=== PATIENT | male | born 1960 | race Caucasian/White ===

== ENCOUNTER 2019-01-18 08:10 | Emergency (ER) | payer MEDICAID ==
[~2019-01-18] VITALS: Ht 177.8 cm; Wt 64.9 kg
[2019-01-18 08:13] VITALS: BP 137/108
[2019-01-18] MEDS ORDERED: ALBUTEROL SULFATE 2.5 MG/3 ML NPPB ONE (08:30)
[2019-01-18 08:49] LABS: BASOPHILS # (AUTO) 0.01 x10^3/uL (0-0.1); BASOPHILS % (AUTO) 0 % (0-1); EOSINOPHILS # (AUTO) 0.17 x10^3/uL (0-0.4); EOSINOPHILS % (AUTO) 2 % (1-7); LYMPHOCYTES # (AUTO) 1.42 x10^3/uL (1-3.4); LYMPHOCYTES % (AUTO) 15 % (22-44); MD NO; MEAN CORPUSCULAR HEMOGLOBIN 30.8 pg (27.5-34.5); MEAN CORPUSCULAR HGB CONC 33.6 g/dL (33.2-36.2); MEAN CORPUSCULAR VOLUME 91.7 fL (81-97); MEAN PLATELET VOLUME 7.4 fL (7.4-10.4); MONOCYTES # (AUTO) 0.21 x10^3/uL (0.2-0.8); MONOCYTES % (AUTO) 2 % (2-9); NEUTROPHILS # (AUTO) 7.83 x10^3/uL (1.8-6.8); NEUTROPHILS % (AUTO) 81 % (42-75); PLATELET COUNT 321 x10^3/uL (130-400); RED BLOOD COUNT 4.53 x10^6/uL (4.38-5.82); RED CELL DISTRIBUTION WIDTH 12.8 % (9.4-14.8)
[2019-01-18 09:06] LABS: ALBUMIN 3.9 g/dL (3.4-5.0); ANION GAP 4 mmol/L (5-15); CALCIUM 8.9 mg/dL (8.5-10.1); CHLORIDE 109 mmol/L (98-107)
[2019-01-18 09:07] LABS: CREATININE 0.87 mg/dL (0.7-1.3)
[2019-01-18] MEDS ORDERED: ALBUTEROL SULFATE 2.5 MG/3 ML ONE (09:36)
--- NOTE | 2019-01-18 09:37 | NUR ---
difficulty breathing, cough x 1 day. pt sitting on gurney. no acute distress noted. pt recently moved to the area 4 months ago. moved into a shelter when he stopped using herion and alcohol oct 08, 2018.
--- NOTE | 2019-01-18 09:38 | NUR ---
RT in room with neb treatment
--- NOTE | 2019-01-18 10:12 | NUR ---
PA to room
[2019-01-18] MEDS ORDERED: ALBU0.63 NEB (10:13)
== END 2019-01-18 10:26 | disposition home or self-care (01) ==
LOC: ED 10:20
DX: J43.9 Emphysema, unspecified (principal)
CPT/HCPCS: 36415; 71046; 80048; 82040; 85025; 93005; 94640; 99284; J7512

== ENCOUNTER 2019-01-27 20:49 | Inpatient (IN) | payer MEDICAID ==
[~2019-01-27] VITALS: Ht 177.8 cm; Wt 62.0 kg
[~2019-01-27 20:49] MED LIST: ALBU0.63 NEB
--- NOTE | 2019-01-27 21:16 | NUR ---
DR. SANTOS AT BS TO [place] PT. AND DISCUSS POC.
[2019-01-27] MEDS ORDERED: MORPHINE SULFATE 4 MG/ML, 1ML ONE (21:25)
[2019-01-27] MEDS ORDERED: ONDANSETRON 2MG/ML, 2ML ONE (21:25)
[2019-01-27] MEDS ORDERED: ONDANSETRON 2MG/ML, 2ML IVPush ONE (21:30)
--- NOTE | 2019-01-27 21:40 | NUR ---
FIRST ATTEMPT AT IV ACCESS FAILED. PT. REPORTS HE ALWAYS NEED US IV PLACED R/T DRUG ABUSE IN THE PAST. MARIA ESTHER MALONE IN WITH US MACHINE NOW TO OBTAIN IV. EKG BEING COMPLETED BY JC.
[2019-01-27 22:07] LABS: BASOPHILS # (AUTO) 0.03 x10^3/uL (0-0.1); BASOPHILS % (AUTO) 0 % (0-1); EOSINOPHILS # (AUTO) 0.07 x10^3/uL (0-0.4); EOSINOPHILS % (AUTO) 0 % (1-7); LYMPHOCYTES # (AUTO) 1.47 x10^3/uL (1-3.4); LYMPHOCYTES % (AUTO) 9 % (22-44); MD NO; MEAN CORPUSCULAR HEMOGLOBIN 30.5 pg (27.5-34.5); MEAN CORPUSCULAR HGB CONC 32.4 g/dL (33.2-36.2); MEAN CORPUSCULAR VOLUME 94.2 fL (81-97); MONOCYTES # (AUTO) 0.36 x10^3/uL (0.2-0.8); MONOCYTES % (AUTO) 2 % (2-9); NEUTROPHILS # (AUTO) 15.23 x10^3/uL (1.8-6.8); NEUTROPHILS % (AUTO) 89 % (42-75); PLATELET COUNT 447 x10^3/uL (130-400); RED BLOOD COUNT 4.74 x10^6/uL (4.38-5.82); RED CELL DISTRIBUTION WIDTH 13.9 % (9.4-14.8)
[2019-01-27 22:14] LABS: ALANINE AMINOTRANSFERASE 50 U/L (12-78); ALBUMIN 3.9 g/dL (3.4-5.0); ANION GAP 8 mmol/L (5-15); CALCIUM 9.2 mg/dL (8.5-10.1); CHLORIDE 104 mmol/L (98-107); CREATININE 0.86 mg/dL (0.7-1.3)
[2019-01-27] MEDS: MORPHINE SULFATE 4 MG/ML, 1ML IVPush PRN (22:18)
[2019-01-27 22:19] LABS: ALKALINE PHOSPHATASE 85 U/L (45-117); BILIRUBIN,TOTAL 0.3 mg/dL (0.2-1.0); TOTAL PROTEIN 7.4 g/dL (6.4-8.2); TROPONIN I < 0.015 ng/mL (0.000-0.045)
[2019-01-27] MEDS ORDERED: MIRT15TA94 PO (22:23)
[2019-01-27] MEDS ORDERED: OMNIPAQUE 350 MG/ML, 100ML BOTTLE ONE (22:57)
--- NOTE | 2019-01-27 23:44 | NUR ---
PT. TO US VIA [facility].
[2019-01-28 00:19] LABS: MICROSCOPIC NOT IND
[2019-01-28 00:22] LABS: CULTURE INDICATED? NO
[2019-01-28] MEDS ORDERED: MORPHINE SULFATE 4 MG/ML, 1ML ONE (00:24)
[2019-01-28] MEDS: MORPHINE SULFATE 4 MG/ML, 1ML IVPush PRN (00:26)
[2019-01-28] MEDS ORDERED: CEFOTETAN PMX 1GM/50ML 50 ML IV ONE (01:00)
[2019-01-28] MEDS ORDERED: BUPIVACAINE/PF-EPI 0.5% 1:200K ONE (01:11)
[2019-01-28] MEDS ORDERED: MORPHINE SULFATE 4 MG/ML, 1ML IVPush PRN (01:30)
[2019-01-28] MEDS ORDERED: ONDANSETRON 2MG/ML, 2ML IVPush PRN ×2 (01:30→04:30)
[2019-01-28] MEDS ORDERED: CEFOTETAN PMX 1GM/50ML 50 ML ONE (01:44)
--- NOTE | 2019-01-28 01:50 | NUR ---
BREAK RN: PER ERP, NO BLOOD CULTURES WANTED AT THIS TIME. ORDERED ABX HUNG. PT VSS, SEE CHARTED. PT RESTING CALMLY IN BED, NO STATED NEEDS. PT HAS LEMON STICKS AT BEDSIDE. CALL LIGHT WITHIN REACH.
[2019-01-28] MEDS ORDERED: SODIUM CHLORIDE 0.9% 1,000 ML IV SCH (04:19)
[2019-01-28] MEDS ORDERED: POLYETHYLENE GLYCOL 17 GM PACKET PO PRN (04:30)
[2019-01-28] MEDS ORDERED: HEPARIN 5,000 UNITS/ML, 1ML SQ SCH (04:30)
[2019-01-28] MEDS ORDERED: morphine SULFATE 10 MG/ML, 1ML IVPush PRN (04:30)
[2019-01-28] MEDS ORDERED: BISACODYL 10 MG SUPP PR PRN (04:30)
[2019-01-28] MEDS ORDERED: BUPIVACAINE/PF-EPI 0.5% 1:200K IM ONE (04:31)
[2019-01-28] MEDS: NICOTINE 14MG/24 HR PATCH.TD24 TD SCH ×2 (04:43→09:05)
[2019-01-28] MEDS ORDERED: FENTANYL PF 250 MCG/5ML ONE (05:17)
[2019-01-28] MEDS ORDERED: ONDANSETRON 2MG/ML, 2ML ONE (05:18)
[2019-01-28] MEDS ORDERED: MIDAZOLAM 1 MG/ML, 2ML ONE (05:18)
[2019-01-28] MEDS ORDERED: ROCURONIUM 10MG/ML,5ML ONE (05:18)
[2019-01-28] MEDS ORDERED: CEFAZOLIN 1,000 MG ONE (05:18)
[2019-01-28] MEDS ORDERED: GLYCOPYRROLATE 0.2MG/1ML, 5ML ONE (05:18)
[2019-01-28] MEDS ORDERED: NEOSTIGMINE 1 MG/ML, 10ML ONE (05:18)
[2019-01-28] MEDS ORDERED: DEXAMETHASONE 4 MG/ML, 1ML ONE (05:18)
[2019-01-28] MEDS ORDERED: PROPOFOL 10 MG/ML, 20ML ONE (05:18)
[2019-01-28] MEDS ORDERED: SUCCINYLCHOLINE 20 MG/ML, 10ML ONE (05:18)
[2019-01-28] MEDS ORDERED: EPHEDRINE 50 MG/ML, 1ML ONE (05:22)
[2019-01-28 06:43] LABS: BASOPHILS # (AUTO) 0.02 x10^3/uL (0-0.1); BASOPHILS % (AUTO) 0 % (0-1); EOSINOPHILS # (AUTO) 0.16 x10^3/uL (0-0.4); EOSINOPHILS % (AUTO) 2 % (1-7); LYMPHOCYTES # (AUTO) 1.97 x10^3/uL (1-3.4); LYMPHOCYTES % (AUTO) 18 % (22-44); MD NO; MEAN CORPUSCULAR HEMOGLOBIN 31.1 pg (27.5-34.5); MEAN CORPUSCULAR HGB CONC 33.2 g/dL (33.2-36.2); MEAN CORPUSCULAR VOLUME 93.7 fL (81-97); MEAN PLATELET VOLUME 6.1 fL (7.4-10.4); MONOCYTES # (AUTO) 0.85 x10^3/uL (0.2-0.8); MONOCYTES % (AUTO) 8 % (2-9); NEUTROPHILS # (AUTO) 7.87 x10^3/uL (1.8-6.8); NEUTROPHILS % (AUTO) 72 % (42-75); PLATELET COUNT 372 x10^3/uL (130-400); RED BLOOD COUNT 3.85 x10^6/uL (4.38-5.82); RED CELL DISTRIBUTION WIDTH 13.5 % (9.4-14.8)
[2019-01-28] MEDS: HYDROmorphone 2 MG/ML, 1ML IVPush PRN ×4 (07:16→08:05)
[2019-01-28 07:17] LABS: HEMOGLOBIN A1C 5.8 % (4.2-6.3)
[2019-01-28] MEDS ORDERED: HYDROmorphone 2 MG/ML, 1ML ONE (07:18)
[2019-01-28] MEDS ORDERED: FENTANYL PF 100 MCG/2ML ONE (07:18)
[2019-01-28] MEDS ORDERED: OXYcodone 5 MG/5 ML ORAL.SOL UDC ONE (07:18)
[2019-01-28] MEDS ORDERED: LABETALOL 5MG/ML, 20ML IV PRN (07:30)
[2019-01-28] MEDS ORDERED: PROMETHAZINE 25 MG/ML, 1ML IV PRN (07:30)
[2019-01-28] MEDS ORDERED: hydrALAzine 20 MG/ML, 1ML IV PRN (07:30)
[2019-01-28] MEDS ORDERED: FENTANYL PF 100 MCG/2ML IV PRN (07:30)
[2019-01-28] MEDS ORDERED: ONDANSETRON ODT 8 MG PO PRN (07:30)
[2019-01-28] MEDS ORDERED: MEPERIDINE/PF 25MG/0.5ML IVPush PRN (07:30)
[2019-01-28] MEDS ORDERED: ACETAMINOPHEN 325 MG TABLET PO PRN (07:30)
[2019-01-28] MEDS ORDERED: ONDANSETRON 2MG/ML, 2ML IV PRN ×2 (07:30→09:30)
[2019-01-28] MEDS ORDERED: OXYcodone 5 MG/5 ML ORAL.SOL UDC PO PRN (07:30)
[2019-01-28] MEDS ORDERED: LORazepam 2 MG/ML, 1ML IVPush PRN (07:30)
[2019-01-28 07:33] LABS: INTERNATIONAL NORMALIZED RATIO 0.95 (0.93-1.1)
[2019-01-28] MEDS: FAMOTIDINE 20 MG TABLET PO SCH ×2 (09:05→20:18)
[2019-01-28] MEDS ORDERED: LORazepam 2 MG/ML, 1ML IV PRN (09:30)
[2019-01-28] MEDS ORDERED: HYDROmorphone 2 MG/ML, 1ML IVPush PRN (09:30)
[2019-01-28] MEDS ORDERED: LORazepam 1MG TABLET PO PRN (09:30)
[2019-01-28 09:59] VITALS: BP 102/63
[2019-01-28 10:12] LABS: TROPONIN I < 0.015 ng/mL (0.000-0.045)
[2019-01-28 10:18] LABS: THYROID STIMULATING HORMONE 0.743 mIU/L (0.358-3.740)
[2019-01-28] MEDS: POTASSIUM CHLORIDE 20 MEQ in D5%-0.45% NACL 1,000 ML IV SCH ×2 (13:15→23:51)
[2019-01-28] MEDS: CEFOTETAN PMX 1GM/50ML 50 ML IVPB SCH (13:15)
[2019-01-28] MEDS: morphine SULFATE 10 MG/ML, 1ML IV PRN ×2 (13:51→20:18)
[2019-01-28 14:33] VITALS: BP 132/76
[2019-01-28] MEDS ORDERED: ALBUTEROL SULFATE 2.5 MG/3 ML NPPB PRN (17:00)
[2019-01-28 19:41] VITALS: BP 119/68
[2019-01-28] MEDS: OXYcodone/APAP 5/325MG TABLET PO PRN (23:01)
[2019-01-28 23:53] VITALS: BP 116/73
[2019-01-29] MEDS: CEFOTETAN PMX 1GM/50ML 50 ML IVPB SCH (01:38)
[2019-01-29 03:55] VITALS: BP 125/75
[2019-01-29] MEDS: OXYcodone/APAP 5/325MG TABLET PO PRN ×5 (03:55→23:25)
[2019-01-29 06:12] LABS: MEAN CORPUSCULAR HGB CONC 33.1 g/dL (33.2-36.2); MEAN CORPUSCULAR VOLUME 93.6 fL (81-97); MEAN PLATELET VOLUME 6.9 fL (7.4-10.4); PLATELET COUNT 322 x10^3/uL (130-400); RED BLOOD COUNT 3.96 x10^6/uL (4.38-5.82); RED CELL DISTRIBUTION WIDTH 13.8 % (9.4-14.8)
[2019-01-29 06:39] LABS: ANION GAP 6 mmol/L (5-15); CALCIUM 8.1 mg/dL (8.5-10.1); CHLORIDE 101 mmol/L (98-107)
[2019-01-29 06:43] LABS: CREATININE 0.87 mg/dL (0.7-1.3)
[2019-01-29 06:44] LABS: ALANINE AMINOTRANSFERASE 84 U/L (12-78); ALKALINE PHOSPHATASE 74 U/L (45-117); BILIRUBIN,TOTAL 0.5 mg/dL (0.2-1.0); CHOL/HDL RATIO 2.7; CHOLESTEROL, TOTAL 107 mg/dL (140-239); HDL CHOL % 37 % (26-37); HDL CHOLESTEROL (DIRECT) 40 mg/dL (40-60); LDL CHOLESTEROL,CALCULATED 50 mg/dL (54-169); LDL/HDL RATIO 1.3 (0.5-3.0); MD YES; TOTAL PROTEIN 6.2 g/dL (6.4-8.2); TRIGLYCERIDES 84 mg/dL (50-200); VLDL CHOLESTEROL 17 mg/dL (0-25)
[2019-01-29 06:46] LABS: <PLATELET ESTIMATE> ADEQUATE; <PLT MORPHOLOGY> NORMAL PLT MORPH; <RBC MORPHOLOGY> NORMAL; BAND#(MANUAL) 0.85 x10^3/uL; BANDS%(MANUAL) 5 % (0-7); LYMPH#(MANUAL) 0.68 x10^3/uL (1-3.4); LYMPHS% (MANUAL) 4 % (22-44); MONOS#(MANUAL) 1.36 x10^3/uL (0.3-2.7); MONOS% (MANUAL) 8 % (2-9); SEG#(MANUAL) 14.11 x10^3/uL (1.8-6.8); SEGS% (MANUAL) 83 % (42-75)
[2019-01-29] MEDS: FAMOTIDINE 20 MG TABLET PO SCH ×2 (08:09→23:25)
[2019-01-29] MEDS: NICOTINE 14MG/24 HR PATCH.TD24 TD SCH (08:10)
[2019-01-29] MEDS: POTASSIUM CHLORIDE 20 MEQ in D5%-0.45% NACL 1,000 ML IV SCH ×2 (09:12→19:18)
[2019-01-29 11:26] VITALS: BP 117/70
[2019-01-29 14:14] VITALS: BP 114/75
[2019-01-29] MEDS ORDERED: DOCUSATE 100 MG CAPSULE PO PRN (14:30)
[2019-01-29] MEDS ORDERED: DOCUSATE 100 MG CAPSULE PO SCH (14:30)
[2019-01-29 20:09] VITALS: BP 101/65
[2019-01-29] MEDS: DOCUSATE 100 MG CAPSULE PO SCH (23:25)
[2019-01-30 02:52] VITALS: BP 120/77
[2019-01-30] MEDS: OXYcodone/APAP 5/325MG TABLET PO PRN ×5 (03:45→23:41)
[2019-01-30] MEDS: POTASSIUM CHLORIDE 20 MEQ in D5%-0.45% NACL 1,000 ML IV SCH ×3 (03:45→20:41)
[2019-01-30 04:57] LABS: MEAN CORPUSCULAR HEMOGLOBIN 30.6 pg (27.5-34.5); MEAN CORPUSCULAR HGB CONC 32.6 g/dL (33.2-36.2); MEAN PLATELET VOLUME 7.4 fL (7.4-10.4); PLATELET COUNT 313 x10^3/uL (130-400); RED BLOOD COUNT 3.84 x10^6/uL (4.38-5.82); RED CELL DISTRIBUTION WIDTH 13.8 % (9.4-14.8)
[2019-01-30 05:09] LABS: ALBUMIN 2.8 g/dL (3.4-5.0); ANION GAP 7 mmol/L (5-15); CALCIUM 8.6 mg/dL (8.5-10.1); CHLORIDE 103 mmol/L (98-107)
[2019-01-30 05:13] LABS: ALANINE AMINOTRANSFERASE 71 U/L (12-78); ALKALINE PHOSPHATASE 75 U/L (45-117); BILIRUBIN,TOTAL 0.6 mg/dL (0.2-1.0); CREATININE 0.81 mg/dL (0.7-1.3); TOTAL PROTEIN 6.3 g/dL (6.4-8.2)
[2019-01-30 05:41] LABS: BASOPHILS # (AUTO) 0.07 x10^3/uL (0-0.1); BASOPHILS % (AUTO) 0 % (0-1); EOSINOPHILS # (AUTO) 0.19 x10^3/uL (0-0.4); EOSINOPHILS % (AUTO) 1 % (1-7); LYMPHOCYTES # (AUTO) 1.01 x10^3/uL (1-3.4); LYMPHOCYTES % (AUTO) 5 % (22-44); MD SCAN; MONOCYTES # (AUTO) 1.21 x10^3/uL (0.2-0.8); MONOCYTES % (AUTO) 6 % (2-9); NEUTROPHILS # (AUTO) 16.86 x10^3/uL (1.8-6.8); NEUTROPHILS % (AUTO) 87 % (42-75)
[2019-01-30 08:01] VITALS: BP 120/78
[2019-01-30] MEDS: NICOTINE 14MG/24 HR PATCH.TD24 TD SCH (08:16)
[2019-01-30] MEDS: FAMOTIDINE 20 MG TABLET PO SCH ×2 (08:16→20:41)
[2019-01-30] MEDS ORDERED: metroNIDAZOLE 500 MG TABLET PO SCH (10:30)
[2019-01-30] MEDS ORDERED: CIPROFLOXACIN 500 MG TABLET PO SCH (10:30)
[2019-01-30] MEDS: PIPERACILLIN/TAZO/PMX 3.375GM 50 ML IV SCH ×2 (14:06→20:41)
[2019-01-30 14:34] VITALS: BP 106/69
[2019-01-30 19:33] VITALS: BP 99/59
[2019-01-30] MEDS: DOCUSATE 100 MG CAPSULE PO SCH (20:41)
[2019-01-31 02:01] VITALS: BP 113/71
[2019-01-31] MEDS: OXYcodone/APAP 5/325MG TABLET PO PRN ×5 (03:57→23:10)
[2019-01-31] MEDS: PIPERACILLIN/TAZO/PMX 3.375GM 50 ML IV SCH ×4 (03:58→21:31)
[2019-01-31 05:14] LABS: MEAN CORPUSCULAR VOLUME 93.9 fL (81-97); MEAN PLATELET VOLUME 7.5 fL (7.4-10.4); PLATELET COUNT 297 x10^3/uL (130-400); RED BLOOD COUNT 3.46 x10^6/uL (4.38-5.82); RED CELL DISTRIBUTION WIDTH 13.9 % (9.4-14.8)
[2019-01-31 05:50] LABS: BASOPHILS # (AUTO) 0.02 x10^3/uL (0-0.1); BASOPHILS % (AUTO) 0 % (0-1); EOSINOPHILS # (AUTO) 0.11 x10^3/uL (0-0.4); EOSINOPHILS % (AUTO) 1 % (1-7); LYMPHOCYTES # (AUTO) 0.56 x10^3/uL (1-3.4); LYMPHOCYTES % (AUTO) 3 % (22-44); MD SCAN; MONOCYTES # (AUTO) 0.74 x10^3/uL (0.2-0.8); MONOCYTES % (AUTO) 4 % (2-9); NEUTROPHILS # (AUTO) 16.85 x10^3/uL (1.8-6.8); NEUTROPHILS % (AUTO) 92 % (42-75)
[2019-01-31 07:15] VITALS: BP 122/78
[2019-01-31] MEDS: FAMOTIDINE 20 MG TABLET PO SCH ×2 (08:59→21:04)
[2019-01-31] MEDS: NICOTINE 14MG/24 HR PATCH.TD24 TD SCH (08:59)
[2019-01-31] MEDS: POTASSIUM CHLORIDE 20 MEQ in D5%-0.45% NACL 1,000 ML IV SCH ×3 (09:00→21:31)
[2019-01-31 14:02] VITALS: BP 104/67
[2019-01-31 19:44] VITALS: BP 105/68
[2019-01-31] MEDS: DOCUSATE 100 MG CAPSULE PO SCH (21:05)
[2019-02-01 02:11] VITALS: BP 102/68
[2019-02-01] MEDS: PIPERACILLIN/TAZO/PMX 3.375GM 50 ML IV SCH ×3 (03:57→15:47)
[2019-02-01] MEDS: OXYcodone/APAP 5/325MG TABLET PO PRN ×3 (04:01→13:15)
[2019-02-01 07:41] LABS: MEAN CORPUSCULAR HEMOGLOBIN 29.3 pg (27.5-34.5); MEAN CORPUSCULAR HGB CONC 31.2 g/dL (33.2-36.2); MEAN CORPUSCULAR VOLUME 93.8 fL (81-97); MEAN PLATELET VOLUME 7.3 fL (7.4-10.4); PLATELET COUNT 319 x10^3/uL (130-400)
[2019-02-01 07:52] LABS: ALANINE AMINOTRANSFERASE 46 U/L (12-78); ALBUMIN 2.5 g/dL (3.4-5.0); ANION GAP 3 mmol/L (5-15); CHLORIDE 105 mmol/L (98-107)
[2019-02-01 07:54] LABS: ALKALINE PHOSPHATASE 93 U/L (45-117); BILIRUBIN,TOTAL 0.6 mg/dL (0.2-1.0); CREATININE 0.75 mg/dL (0.7-1.3); TOTAL PROTEIN 6.1 g/dL (6.4-8.2)
[2019-02-01 07:56] LABS: BASOPHILS # (AUTO) 0.01 x10^3/uL (0-0.1); BASOPHILS % (AUTO) 0 % (0-1); EOSINOPHILS # (AUTO) 0.27 x10^3/uL (0-0.4); EOSINOPHILS % (AUTO) 2 % (1-7); LYMPHOCYTES # (AUTO) 0.91 x10^3/uL (1-3.4); LYMPHOCYTES % (AUTO) 8 % (22-44); MD SCAN; MONOCYTES # (AUTO) 1.03 x10^3/uL (0.2-0.8); MONOCYTES % (AUTO) 9 % (2-9); NEUTROPHILS # (AUTO) 9.75 x10^3/uL (1.8-6.8); NEUTROPHILS % (AUTO) 82 % (42-75)
[2019-02-01] MEDS: NICOTINE 14MG/24 HR PATCH.TD24 TD SCH (08:51)
[2019-02-01] MEDS: FAMOTIDINE 20 MG TABLET PO SCH (08:51)
[2019-02-01 09:30] VITALS: BP 110/63
[2019-02-01] MEDS: POTASSIUM CHLORIDE 20 MEQ in D5%-0.45% NACL 1,000 ML IV SCH (14:04)
[2019-02-01 14:30] VITALS: BP 108/62
[2019-02-01] MEDS ORDERED: NICO-486 TD (15:17)
[2019-02-01] MEDS ORDERED: METR500T PO (15:17)
[2019-02-01] MEDS ORDERED: CIPR250T27 PO (15:17)
== END 2019-02-01 16:33 | disposition home or self-care (01) | DRG 415 ==
LOC: ED 22:10 → EDIP 01-28 01:07 → 4NOR 01-28 02:30
PROVIDERS: ADMIT Internal Medicine; ATTEND Internal Medicine
PROC: 0FJ44ZZ Inspection of Gallbladder, Percutaneous Endoscopic Approach (ICD-10-PCS; 2019-01-28)
PROC: 0FT40ZZ Resection of Gallbladder, Open Approach (ICD-10-PCS; principal; 2019-01-28 05:00)
DX: K80.12 Calculus of gallbladder with acute and chronic cholecystitis without obstruction (principal); K82.1 Hydrops of gallbladder; F17.210 Nicotine dependence, cigarettes, uncomplicated; F32.9 Major depressive disorder, single episode, unspecified; Z66 Do not resuscitate; J44.9 Chronic obstructive pulmonary disease, unspecified; K57.30 Diverticulosis of large intestine without perforation or abscess without bleeding; K82.8 Other specified diseases of gallbladder; R50.82 Postprocedural fever; Z53.31 Laparoscopic surgical procedure converted to open procedure; Z56.0 Unemployment, unspecified
CPT/HCPCS: 36415; 74018; 74177; 76700; 80053; 80061; 81003; 83036; 83690; 83735; 84443; 84484; 85025; 85610; 85730; 87040; 88304; 93005; 96365; 96375; 96376; G0378; J0690; J1100; J1170; J2250; J2405; J2543; J2704; J2710; J3010; J3480; Q9967; J0330; J2270; J3490

== ENCOUNTER 2019-02-04 04:35 | Inpatient (IN) | payer MEDICAID ==
[~2019-02-04] VITALS: Ht 177.8 cm; Wt 71.1 kg
[~2019-02-04 04:35] MED LIST changes: +CIPR250T27 PO; +METR500T PO; +MIRT15TA94 PO; +NICO-486 TD
--- NOTE | 2019-02-04 04:53 | NUR ---
58 Y/O MALE BIB [facility] C/O LEFT SIDED ABD PAIN THAT RADIATES TO THE LEFT SHOULDER. PAIN HAS BEEN PRESENT FOR THE PAST FEW DAYS AND HAS PROGRESSIVELY GOTTEN WORSE. EMS REPORTS THE PT WAS EXTREMELY UNCOMFORTABLE UPON THEIR ARRIVAL. HE DID HAVE HIS GALLBLADDER REMOVED A WEEK AGO. SURGICAL SITE TO THE RIGHT SIDE OF THE ABD. YAEL IN PLACE, WELL APPROXIMATED, NO SIGNS OF INFECTION/INFLAMMATION. PT DENIES ANY N/V/D. DENIES ANY FEVER/CHILLS. HX OF COPD, PRIOR IV DRUG USER/ALCOHOLIC. EMS FOUND PT TO BE HYPOXIC AT 90% ON RA. PT DENIES HOME O2 USE. EMS ESTABLISHED IV AND ADMINISTERED 100MCG OF FENTANYL AND 1MG OF VERSED. ALSO PLACED ON O2 VIA NC @ 2LPM. PT ATTACHED TO ALL MONITORING EQUIPMENT, EKG OBTAINED. SHOWING NSR ON THE MONITOR. ALL VITALS STABLE. PT APPEARS UNCOMFORTABLE AND IN PAIN. AWAITING PROVIDER TO SEE PT. PT PLACED IN POSITION OF COMFORT. CALL LIGHT WITHIN REACH. WILL CONTINUE TO MONITOR.
[2019-02-04] MEDS ORDERED: SODIUM CHLORIDE FLUSH 10ML SYR IVF ONE (05:00)
[2019-02-04] MEDS ORDERED: MORPHINE SULFATE 4 MG/ML, 1ML IVPush PRN (05:00)
[2019-02-04] MEDS ORDERED: ONDANSETRON 2MG/ML, 2ML IVPush ONE (05:00)
[2019-02-04] MEDS ORDERED: MORPHINE SULFATE 4 MG/ML, 1ML ONE (05:02)
[2019-02-04] MEDS ORDERED: ONDANSETRON 2MG/ML, 2ML ONE (05:02)
--- NOTE | 2019-02-04 05:08 | NUR ---
PT MEDICATED PER EMAR, 5 RIGHTS ADDRESSED. PT CURRENTLY RATES HIS PAIN A 7/10.
--- NOTE | 2019-02-04 05:18 | NUR ---
XRAY AT BEDSIDE.
[2019-02-04 05:32] LABS: BASOPHILS # (AUTO) 0.01 x10^3/uL (0-0.1); BASOPHILS % (AUTO) 0 % (0-1); EOSINOPHILS % (AUTO) 1 % (1-7); LYMPHOCYTES # (AUTO) 0.66 x10^3/uL (1-3.4); LYMPHOCYTES % (AUTO) 5 % (22-44); MD NO; MEAN CORPUSCULAR HEMOGLOBIN 30.3 pg (27.5-34.5); MEAN CORPUSCULAR HGB CONC 32.9 g/dL (33.2-36.2); MEAN CORPUSCULAR VOLUME 92.3 fL (81-97); MEAN PLATELET VOLUME 6.4 fL (7.4-10.4); MONOCYTES # (AUTO) 0.75 x10^3/uL (0.2-0.8); MONOCYTES % (AUTO) 5 % (2-9); NEUTROPHILS # (AUTO) 12.74 x10^3/uL (1.8-6.8); NEUTROPHILS % (AUTO) 89 % (42-75); PLATELET COUNT 669 x10^3/uL (130-400); RED BLOOD COUNT 3.59 x10^6/uL (4.38-5.82); RED CELL DISTRIBUTION WIDTH 14.1 % (9.4-14.8)
[2019-02-04 05:37] LABS: ALANINE AMINOTRANSFERASE 60 U/L (12-78); ALBUMIN 2.9 g/dL (3.4-5.0); ANION GAP 6 mmol/L (5-15); CALCIUM 8.6 mg/dL (8.5-10.1); CHLORIDE 105 mmol/L (98-107); CREATININE 0.83 mg/dL (0.7-1.3)
[2019-02-04] MEDS ORDERED: HYDROmorphone 2 MG/ML, 1ML ONE (05:38)
[2019-02-04 05:39] LABS: ALKALINE PHOSPHATASE 232 U/L (45-117); BILIRUBIN,TOTAL 0.3 mg/dL (0.2-1.0); TOTAL PROTEIN 6.7 g/dL (6.4-8.2)
[2019-02-04] MEDS: HYDROmorphone 2 MG/ML, 1ML IVPush PRN ×2 (05:42→06:09)
--- NOTE | 2019-02-04 05:43 | NUR ---
PT MEDICATED PER EMAR FOR PAIN. 5 RIGHTS ADDRESSED. PT HAS URINAL AND UNDERSTANDS THE NEED FOR A URINE SAMPLE, STATES HE CANNOT GO AT THIS TIME AND UNABLE TO HAVE ANY WATER UNTIL TESTS COME BACK. PT STATES HE WILL TRY TO PROVIDE A URINE SAMPLE.
--- NOTE | 2019-02-04 05:49 | NUR ---
PT TO CT
[2019-02-04] MEDS ORDERED: OMNIPAQUE 350 MG/ML, 100ML BOTTLE ONE (06:08)
--- NOTE | 2019-02-04 06:09 | NUR ---
PT MEDICATED PER EMAR FOR SECOND DOSE OF DILAUDID FOR PAIN. PT STILL APPEARS TO BE UNCOMFORTABLE. PT PROVIDED WITH PILLOW BEHIND BACK FOR COMFORT. STILL KNOWS HE NEEDS TO PROVIDE A URINE SAMPLE WHEN ABLE. AWAITING CT RESULTS AT THIS TIME. WILL CONTINUE TO MONITOR.
--- NOTE | 2019-02-04 06:32 | NUR ---
PT STATES PAIN IS NOW A 5/10 BUT STILL SIGNIFICANT. HE APPEARS SOMEWHAT MORE COMFORTABLE. AWAITING CT RESULTS AT THIS TIME. WILL DISCUSS FURTHER PAIN MANAGEMENT OPTIONS WITH ERP.
--- NOTE | 2019-02-04 07:00 | NUR ---
REPORT TO MARIA ESTHER DELGADO AND BRII RN
--- NOTE | 2019-02-04 07:01 | NUR ---
Report from night RN . Rounded on pt, stating his pain is still 6. ERP at BS discussed CT results. Will cont to monitor, call light within reach
[2019-02-04] MEDS ORDERED: DOCU100C33 PO (07:17)
[2019-02-04] MEDS ORDERED: CEFOTETAN PMX 1GM/50ML 50 ML ONE (07:28)
[2019-02-04] MEDS ORDERED: CEFOTETAN PMX 1GM/50ML 50 ML IV ONE (07:30)
--- NOTE | 2019-02-04 07:56 | NUR ---
PER CODING ASSISTANT 2ND BLOOD CULTURE NOT DRAWN. DISCUSSED WITH DR. JOHNSON, 2ND BC NOT DRAWN AND ABX HAVE BEEN STARTED. 2ND BC TO BE CANCELLED.
--- NOTE | 2019-02-04 08:57 | NUR ---
REPORT TO MARIA ESTHER RIZO ON FLOOR. READY FOR PT TRANSFER
[2019-02-04] MEDS ORDERED: SODIUM CHLORIDE FLUSH 10ML SYR IVF PRN (09:00)
[2019-02-04 09:17] VITALS: BP 145/80
[2019-02-04] MEDS ORDERED: hydrALAzine 20 MG/ML, 1ML IVPush PRN (10:30)
[2019-02-04] MEDS ORDERED: ONDANSETRON 2MG/ML, 2ML IVPush PRN (10:30)
[2019-02-04 10:39] LABS: INTERNATIONAL NORMALIZED RATIO 0.98 (0.93-1.1); PROTHROMBIN TIME 10.3 Seconds (9.6-11.5)
[2019-02-04] MEDS ORDERED: LIDOCAINE-MPF 1%, 5ML ONE (10:59)
[2019-02-04] MEDS ORDERED: FLUMAZENIL 0.1 MG/1 ML, 5ML ONE (12:14)
[2019-02-04] MEDS ORDERED: MIDAZOLAM 1 MG/ML, 5ML ONE (12:14)
[2019-02-04] MEDS ORDERED: NALOXONE 1 MG/ML, 2ML ONE (12:14)
[2019-02-04] MEDS ORDERED: FENTANYL PF 100 MCG/2ML ONE (12:14)
[2019-02-04] MEDS: D5%-0.45NACL+KCL 20MEQ 1,000 ML IV SCH ×2 (13:52→22:26)
[2019-02-04] MEDS: PIPERACILLIN/TAZO/PMX 3.375GM 50 ML IV SCH ×2 (13:53→21:51)
[2019-02-04] MEDS: PANTOPRAZOLE 40 MG IV IVPush SCH (13:54)
[2019-02-04] MEDS ORDERED: NICOTINE 7 MG/24 HR PATCH.TD24 ONE (16:33)
[2019-02-04] MEDS: NICOTINE 7 MG/24 HR PATCH.TD24 TD SCH (16:36)
[2019-02-04] MEDS: morphine SULFATE 10 MG/ML, 1ML IVPush PRN ×2 (16:40→20:11)
[2019-02-04 19:02] VITALS: BP 111/71
[2019-02-05 00:25] VITALS: BP 115/75
[2019-02-05] MEDS: morphine SULFATE 10 MG/ML, 1ML IVPush PRN ×4 (01:13→20:56)
[2019-02-05 01:48] LABS: MICROSCOPIC NOT IND
[2019-02-05 01:50] LABS: CULTURE INDICATED? NO
[2019-02-05] MEDS: PIPERACILLIN/TAZO/PMX 3.375GM 50 ML IV SCH ×4 (04:07→23:20)
[2019-02-05 05:03] LABS: BASOPHILS # (AUTO) 0.02 x10^3/uL (0-0.1); BASOPHILS % (AUTO) 0 % (0-1); EOSINOPHILS # (AUTO) 0.22 x10^3/uL (0-0.4); EOSINOPHILS % (AUTO) 2 % (1-7); LYMPHOCYTES # (AUTO) 1.19 x10^3/uL (1-3.4); LYMPHOCYTES % (AUTO) 9 % (22-44); MD NO; MEAN CORPUSCULAR HEMOGLOBIN 30.5 pg (27.5-34.5); MEAN CORPUSCULAR HGB CONC 32.7 g/dL (33.2-36.2); MEAN CORPUSCULAR VOLUME 93.3 fL (81-97); MEAN PLATELET VOLUME 6.5 fL (7.4-10.4); MONOCYTES # (AUTO) 0.98 x10^3/uL (0.2-0.8); MONOCYTES % (AUTO) 8 % (2-9); NEUTROPHILS # (AUTO) 10.25 x10^3/uL (1.8-6.8); NEUTROPHILS % (AUTO) 81 % (42-75); PLATELET COUNT 658 x10^3/uL (130-400); RED BLOOD COUNT 3.27 x10^6/uL (4.38-5.82); RED CELL DISTRIBUTION WIDTH 14.3 % (9.4-14.8)
[2019-02-05 05:13] LABS: CHLORIDE 104 mmol/L (98-107)
[2019-02-05 05:26] LABS: ALANINE AMINOTRANSFERASE 41 U/L (12-78); ALBUMIN 2.4 g/dL (3.4-5.0); ALKALINE PHOSPHATASE 157 U/L (45-117); ANION GAP 3 mmol/L (5-15); BILIRUBIN,TOTAL 0.4 mg/dL (0.2-1.0); CREATININE 0.64 mg/dL (0.7-1.3); TOTAL PROTEIN 5.9 g/dL (6.4-8.2)
[2019-02-05] MEDS: D5%-0.45NACL+KCL 20MEQ 1,000 ML IV SCH ×2 (05:33→21:01)
[2019-02-05] MEDS ORDERED: MIDAZOLAM 1 MG/ML, 2ML ONE (06:23)
[2019-02-05] MEDS ORDERED: ROCURONIUM 10MG/ML,5ML ONE ×2 (07:00→14:46)
[2019-02-05] MEDS ORDERED: DEXAMETHASONE 4 MG/ML, 1ML ONE (07:00)
[2019-02-05] MEDS ORDERED: PROPOFOL 10 MG/ML, 20ML ONE ×3 (07:00→14:46)
[2019-02-05] MEDS ORDERED: EPHEDRINE 50 MG/ML, 1ML ONE ×2 (07:01→15:49)
[2019-02-05] MEDS ORDERED: CEFAZOLIN 1,000 MG ONE (07:01)
[2019-02-05] MEDS ORDERED: PHENYLEPHRINE 10 MG/ML ONE (07:01)
[2019-02-05 07:09] VITALS: BP 104/68
[2019-02-05] MEDS ORDERED: FENTANYL PF 250 MCG/5ML ONE (07:39)
[2019-02-05] MEDS: PANTOPRAZOLE 40 MG IV IVPush SCH (08:20)
[2019-02-05] MEDS ORDERED: MORPHINE SULFATE 4 MG/ML, 1ML IVPush PRN (15:00)
[2019-02-05] MEDS ORDERED: HYDROcodone/APAP 7.5-325MG/15ML UDC PO PRN (15:00)
[2019-02-05] MEDS ORDERED: MEPERIDINE/PF 25MG/0.5ML IVPush PRN (15:00)
[2019-02-05] MEDS ORDERED: OXYcodone 5 MG/5 ML ORAL.SOL UDC PO PRN (15:00)
[2019-02-05] MEDS ORDERED: HYDROmorphone 2 MG/ML, 1ML IVPush PRN (15:00)
[2019-02-05] MEDS ORDERED: FENTANYL PF 100 MCG/2ML ONE (15:50)
[2019-02-05] MEDS ORDERED: INDOMETHACIN 50 MG SUPP.RECT ONE (15:51)
[2019-02-05] MEDS ORDERED: OXYcodone 5 MG/5 ML ORAL.SOL UDC ONE (15:51)
[2019-02-05] MEDS: FENTANYL PF 100 MCG/2ML IV PRN ×2 (15:55→16:05)
[2019-02-05] MEDS ORDERED: INDOMETHACIN 50 MG SUPP.RECT PR ONE (16:00)
[2019-02-05] MEDS ORDERED: HYDROmorphone 2 MG/ML, 1ML ONE (16:06)
[2019-02-05] MEDS: NICOTINE 7 MG/24 HR PATCH.TD24 TD SCH (17:42)
[2019-02-05 18:46] VITALS: BP 112/76
[2019-02-05] MEDS ORDERED: SUCCINYLCHOLINE 20 MG/ML, 10ML ONE (19:39)
[2019-02-06 00:35] VITALS: BP 113/68
[2019-02-06] MEDS: morphine SULFATE 10 MG/ML, 1ML IVPush PRN ×6 (03:15→21:20)
[2019-02-06 04:00] VITALS: BP 110/63
[2019-02-06] MEDS: PIPERACILLIN/TAZO/PMX 3.375GM 50 ML IV SCH ×4 (04:06→22:12)
[2019-02-06] MEDS: D5%-0.45NACL+KCL 20MEQ 1,000 ML IV SCH (04:06)
[2019-02-06] MEDS: PANTOPRAZOLE 40 MG IV IVPush SCH (07:12)
[2019-02-06 08:17] VITALS: BP 105/67
[2019-02-06 10:03] LABS: ANION GAP 4 mmol/L (5-15); CALCIUM 8.1 mg/dL (8.5-10.1); CHLORIDE 110 mmol/L (98-107)
[2019-02-06 10:05] LABS: CREATININE 0.74 mg/dL (0.7-1.3)
[2019-02-06 10:15] LABS: MEAN CORPUSCULAR HEMOGLOBIN 29.2 pg (27.5-34.5); MEAN CORPUSCULAR HGB CONC 31.4 g/dL (33.2-36.2); MEAN CORPUSCULAR VOLUME 93.1 fL (81-97); MEAN PLATELET VOLUME 6.1 fL (7.4-10.4); PLATELET COUNT 772 x10^3/uL (130-400); RED BLOOD COUNT 3.18 x10^6/uL (4.38-5.82); RED CELL DISTRIBUTION WIDTH 13.9 % (9.4-14.8)
[2019-02-06 10:48] LABS: BASOPHILS % (AUTO) 0 % (0-1); EOSINOPHILS # (AUTO) 0.26 x10^3/uL (0-0.4); EOSINOPHILS % (AUTO) 4 % (1-7); LYMPHOCYTES # (AUTO) 1.09 x10^3/uL (1-3.4); LYMPHOCYTES % (AUTO) 15 % (22-44); MD SCAN; MONOCYTES # (AUTO) 0.43 x10^3/uL (0.2-0.8); MONOCYTES % (AUTO) 6 % (2-9); NEUTROPHILS # (AUTO) 5.51 x10^3/uL (1.8-6.8); NEUTROPHILS % (AUTO) 76 % (42-75)
[2019-02-06 14:54] VITALS: BP 104/67
[2019-02-06] MEDS: NICOTINE 7 MG/24 HR PATCH.TD24 TD SCH (16:30)
[2019-02-06 19:47] VITALS: BP 117/80
[2019-02-07] MEDS: morphine SULFATE 10 MG/ML, 1ML IVPush PRN ×4 (00:19→07:42)
[2019-02-07 02:44] VITALS: BP 99/63
[2019-02-07] MEDS: PIPERACILLIN/TAZO/PMX 3.375GM 50 ML IV SCH ×4 (04:05→22:54)
[2019-02-07 05:50] LABS: BASOPHILS % (AUTO) 0 % (0-1); EOSINOPHILS # (AUTO) 0.37 x10^3/uL (0-0.4); EOSINOPHILS % (AUTO) 4 % (1-7); LYMPHOCYTES # (AUTO) 1.28 x10^3/uL (1-3.4); LYMPHOCYTES % (AUTO) 12 % (22-44); MD NO; MEAN CORPUSCULAR HEMOGLOBIN 30.5 pg (27.5-34.5); MEAN CORPUSCULAR HGB CONC 33.1 g/dL (33.2-36.2); MEAN CORPUSCULAR VOLUME 92.2 fL (81-97); MEAN PLATELET VOLUME 6.2 fL (7.4-10.4); MONOCYTES # (AUTO) 0.24 x10^3/uL (0.2-0.8); MONOCYTES % (AUTO) 2 % (2-9); NEUTROPHILS # (AUTO) 8.67 x10^3/uL (1.8-6.8); NEUTROPHILS % (AUTO) 82 % (42-75); PLATELET COUNT 769 x10^3/uL (130-400); RED BLOOD COUNT 3.25 x10^6/uL (4.38-5.82); RED CELL DISTRIBUTION WIDTH 14.1 % (9.4-14.8)
[2019-02-07 06:00] LABS: ALBUMIN 2.3 g/dL (3.4-5.0); ANION GAP 5 mmol/L (5-15); CALCIUM 8.3 mg/dL (8.5-10.1); CHLORIDE 109 mmol/L (98-107)
[2019-02-07 06:04] LABS: ALANINE AMINOTRANSFERASE 30 U/L (12-78); ALKALINE PHOSPHATASE 115 U/L (45-117); BILIRUBIN,TOTAL 0.2 mg/dL (0.2-1.0); CREATININE 0.76 mg/dL (0.7-1.3); TOTAL PROTEIN 5.8 g/dL (6.4-8.2)
[2019-02-07 07:27] VITALS: BP 105/65
[2019-02-07] MEDS: PANTOPRAZOLE 40 MG IV IVPush SCH (07:42)
[2019-02-07] MEDS: ENOXAPARIN 40 MG/0.4 ML SQ SCH (10:38)
[2019-02-07] MEDS: OXYcodone IR 5MG TABLET PO PRN ×4 (10:39→22:54)
[2019-02-07 12:31] VITALS: BP 94/59
[2019-02-07] MEDS: NICOTINE 7 MG/24 HR PATCH.TD24 TD SCH (16:34)
[2019-02-07 21:37] VITALS: BP 103/65
[2019-02-08 02:26] VITALS: BP 108/71
[2019-02-08] MEDS: OXYcodone IR 5MG TABLET PO PRN ×5 (02:58→19:54)
[2019-02-08] MEDS: PIPERACILLIN/TAZO/PMX 3.375GM 50 ML IV SCH ×4 (05:18→22:34)
[2019-02-08 05:37] LABS: BASOPHILS # (AUTO) 0.01 x10^3/uL (0-0.1); BASOPHILS % (AUTO) 0 % (0-1); EOSINOPHILS % (AUTO) 2 % (1-7); LYMPHOCYTES # (AUTO) 1.42 x10^3/uL (1-3.4); LYMPHOCYTES % (AUTO) 11 % (22-44); MD NO; MEAN CORPUSCULAR HEMOGLOBIN 30.3 pg (27.5-34.5); MEAN CORPUSCULAR HGB CONC 32.7 g/dL (33.2-36.2); MEAN CORPUSCULAR VOLUME 92.8 fL (81-97); MEAN PLATELET VOLUME 6.3 fL (7.4-10.4); MONOCYTES # (AUTO) 0.28 x10^3/uL (0.2-0.8); MONOCYTES % (AUTO) 2 % (2-9); NEUTROPHILS # (AUTO) 10.83 x10^3/uL (1.8-6.8); NEUTROPHILS % (AUTO) 84 % (42-75); PLATELET COUNT 801 x10^3/uL (130-400); RED BLOOD COUNT 3.45 x10^6/uL (4.38-5.82); RED CELL DISTRIBUTION WIDTH 13.8 % (9.4-14.8)
[2019-02-08 06:36] VITALS: BP 100/63
[2019-02-08] MEDS: PANTOPRAZOLE 40 MG IV IVPush SCH (07:10)
[2019-02-08] MEDS: ENOXAPARIN 40 MG/0.4 ML SQ SCH (10:21)
[2019-02-08 14:16] VITALS: BP 94/63
[2019-02-08] MEDS: NICOTINE 7 MG/24 HR PATCH.TD24 TD SCH (15:51)
[2019-02-08 19:26] VITALS: BP 108/71
[2019-02-08] MEDS ORDERED: TRAZODONE 50MG TABLET PO PRN (21:00)
[2019-02-09] MEDS: OXYcodone IR 5MG TABLET PO PRN ×6 (00:03→20:34)
[2019-02-09 02:19] VITALS: BP 110/70
[2019-02-09] MEDS: PIPERACILLIN/TAZO/PMX 3.375GM 50 ML IV SCH ×4 (04:06→22:13)
[2019-02-09 05:17] LABS: BASOPHILS # (AUTO) 0.03 x10^3/uL (0-0.1); BASOPHILS % (AUTO) 0 % (0-1); EOSINOPHILS # (AUTO) 0.29 x10^3/uL (0-0.4); EOSINOPHILS % (AUTO) 2 % (1-7); LYMPHOCYTES # (AUTO) 1.78 x10^3/uL (1-3.4); LYMPHOCYTES % (AUTO) 15 % (22-44); MD NO; MEAN CORPUSCULAR HEMOGLOBIN 29.5 pg (27.5-34.5); MEAN CORPUSCULAR HGB CONC 32.5 g/dL (33.2-36.2); MEAN CORPUSCULAR VOLUME 90.9 fL (81-97); MEAN PLATELET VOLUME 6.1 fL (7.4-10.4); MONOCYTES # (AUTO) 0.71 x10^3/uL (0.2-0.8); MONOCYTES % (AUTO) 6 % (2-9); NEUTROPHILS # (AUTO) 9.05 x10^3/uL (1.8-6.8); NEUTROPHILS % (AUTO) 76 % (42-75); PLATELET COUNT 824 x10^3/uL (130-400); RED BLOOD COUNT 3.33 x10^6/uL (4.38-5.82); RED CELL DISTRIBUTION WIDTH 14.1 % (9.4-14.8)
[2019-02-09 05:28] LABS: ALANINE AMINOTRANSFERASE 27 U/L (12-78); ALBUMIN 2.4 g/dL (3.4-5.0); ANION GAP 5 mmol/L (5-15); CALCIUM 8.3 mg/dL (8.5-10.1); CHLORIDE 108 mmol/L (98-107); CREATININE 0.77 mg/dL (0.7-1.3)
[2019-02-09 05:30] LABS: ALKALINE PHOSPHATASE 98 U/L (45-117); BILIRUBIN,TOTAL 0.3 mg/dL (0.2-1.0)
[2019-02-09 07:18] VITALS: BP 81/59
[2019-02-09] MEDS: ENOXAPARIN 40 MG/0.4 ML SQ SCH (10:36)
[2019-02-09 11:22] LABS: CLOSTRIDIUM DIFFICILE ANTIGEN NEGATIVE; CLOSTRIDIUM DIFFICILE TOXIN NEGATIVE (Negative)
[2019-02-09 13:29] VITALS: BP 99/52
[2019-02-09] MEDS ORDERED: ENOX40SY4 SQ (14:33)
[2019-02-09] MEDS ORDERED: NICO-485 TD (14:33)
[2019-02-09] MEDS ORDERED: PIPE3.373 IVPB (14:33)
[2019-02-09] MEDS ORDERED: OXYC5TAB3 PO (14:33)
[2019-02-09] MEDS ORDERED: TRAZ50TA66 PO (14:33)
[2019-02-09] MEDS: NICOTINE 7 MG/24 HR PATCH.TD24 TD SCH (16:39)
[2019-02-09 19:42] VITALS: BP 95/58
[2019-02-10] MEDS: OXYcodone IR 5MG TABLET PO PRN ×4 (00:27→12:36)
[2019-02-10 01:43] VITALS: BP 101/62
[2019-02-10] MEDS: PIPERACILLIN/TAZO/PMX 3.375GM 50 ML IV SCH ×2 (04:31→11:22)
[2019-02-10 06:54] VITALS: BP 100/58
[2019-02-10] MEDS: ENOXAPARIN 40 MG/0.4 ML SQ SCH (11:23)
[2019-02-10 12:12] VITALS: BP 112/68
== END 2019-02-10 16:10 | DRG 871 ==
LOC: ED 06:40 → EDIP 09:08 → 4NOR 09:11
PROVIDERS: ADMIT Internal Medicine; ATTEND Internal Medicine
PROC: 0D9W30Z Drainage of Peritoneum with Drainage Device, Percutaneous Approach (ICD-10-PCS; principal; 2019-02-04)
PROC: 0F758DZ Dilation of Right Hepatic Duct with Intraluminal Device, Via Natural or Artificial Opening Endoscopic (ICD-10-PCS; 2019-02-05)
PROC: BF101ZZ Fluoroscopy of Bile Ducts using Low Osmolar Contrast (ICD-10-PCS; 2019-02-05)
DX: A41.9 Sepsis, unspecified organism (principal); K65.3 Choleperitonitis; K91.89 Other postprocedural complications and disorders of digestive system; D64.9 Anemia, unspecified; E88.09 Other disorders of plasma-protein metabolism, not elsewhere classified; F10.21 Alcohol dependence, in remission; F17.210 Nicotine dependence, cigarettes, uncomplicated; F32.9 Major depressive disorder, single episode, unspecified; J44.9 Chronic obstructive pulmonary disease, unspecified; K57.90 Diverticulosis of intestine, part unspecified, without perforation or abscess without bleeding; Z90.49 Acquired absence of other specified parts of digestive tract; K80.50 Calculus of bile duct without cholangitis or cholecystitis without obstruction; Y83.8 Other surgical procedures as the cause of abnormal reaction of the patient, or of later complication, without mention of misadventure at the time of the procedure
CPT/HCPCS: 36415; 49405; 71045; 74177; 74328; 78226; 80048; 80053; 81003; 83605; 83690; 83735; 84100; 85025; 85610; 87040; 87070; 87075; 87205; 87324; 93005; 96365; 96375; 99156; 99157; 99285; G0378; J0690; J1100; J1170; J1650; J2250; J2405; J2543; J2704; J3010; Q9967; A9537; C1729; C1769; C1894; C2625; C9113; C9898; J0330; J2270; J2310; J2370; J3480; J3490

== ENCOUNTER → 2019-02-24 | Day surgery (SDC) | payer MEDICAID ==
[~2019-02-24] VITALS: Ht 177.8 cm; Wt 58.3 kg
[~2019-02-24] MED LIST changes: +DOCU100C33 PO; +ENOX40SY4 SQ; +NICO-485 TD; +OXYC5CAP2 PO; +OXYC5TAB3 PO; +PIPE3.373 IVPB; +TRAZ50TA66 PO
[2019-02-24 07:53] VITALS: BP 111/77
== END | disposition home or self-care (01) ==
LOC: OUT 07:23
PROVIDERS: ATTEND Internal Medicine
DX: Z02.9 Encounter for administrative examinations, unspecified (principal)